=== PATIENT | male | born 1985 | race Two or more races ===

== ENCOUNTER 2018-10-04 07:11 | Outpatient (CLI) | payer OTHER ==
[~2018-10-04] VITALS: Ht 185.4 cm; Wt 129.7 kg
[2018-10-04] VITALS (23 sets, daily range): BP systolic 133–174; BP diastolic 75–107
[2018-10-04] MEDS ORDERED: GLIP5TAB10 PO (07:27)
[2018-10-04] MEDS ORDERED: LISI-334 PO (07:27)
[2018-10-04] MEDS ORDERED: LEVO25TA4 PO (07:27)
[2018-10-04] MEDS ORDERED: INDA1.25 PO (07:27)
[2018-10-04] MEDS ORDERED: ATOR10TA60 PO (07:27)
[2018-10-04 07:54] LABS: BASO # 0.1 x10^3/uL (0.0-0.2); BASO % 1 % (0-3); EOS # 0.4 x10^3/uL (0.0-0.7); EOS % 5 % (0-3); HEMATOCRIT 29.4 % (39.0-53.0); HEMOGLOBIN 10.3 g/dL (13.0-17.5); LYMPH # 2.8 x10^3/uL (1.0-4.8); LYMPH % 37 % (24-48); MEAN CORPUSCULAR HEMOGLOBIN 30 pg (25-35); MEAN CORPUSCULAR HGB CONC 35 g/dL (31-37); MEAN CORPUSCULAR VOLUME 86 fL (79-100); MONO # 0.5 x10^3/uL (0.0-1.1); MONO % 7 % (0-9); NEUT # 3.8 x10^3uL (1.8-7.7); NEUT % 50 % (31-73); PLATELET COUNT 170 x10^3/uL (140-400); RED BLOOD COUNT 3.43 x10^6/uL (4.30-5.70); RED CELL DISTRIBUTION WIDTH 13.9 % (11.5-14.5); WHITE BLOOD COUNT 7.6 x10^3/uL (4.0-11.0)
[2018-10-04] MEDS ORDERED: fentaNYL PF VIAL 100 MCG/2 ML VIAL ONE ×2 (08:03→08:26)
[2018-10-04] MEDS ORDERED: MIDAZOLAM HCL/PF 5 MG/5 ML VIAL. ONE (08:03)
[2018-10-04 08:04] LABS: PROTHROMBIN TIME PATIENT 12.7 SEC (11.7-14.0)
[2018-10-04] MEDS ORDERED: LIDOCAINE WITH 8.4% SOD BICARB 3 ML DISP.SYRIN. ONE (08:04)
[2018-10-04] MEDS ORDERED: GELATIN SPONGE SIZE 12-7MM SPONGE. ONE (08:05)
[2018-10-04] MEDS ORDERED: MIDAZOLAM HCL/PF 2 MG/2 ML VIAL. ONE (08:26)
[2018-10-04] MEDS ORDERED: MIDAZOLAM HCL/PF 2 MG/2 ML VIAL. IV ONE (08:45)
[2018-10-04] MEDS ORDERED: LIDOCAINE WITH 8.4% SOD BICARB 3 ML DISP.SYRIN. IJ ONE (08:45)
[2018-10-04] MEDS ORDERED: fentaNYL PF VIAL 100 MCG/2 ML VIAL IV ONE (08:45)
--- NOTE | 2018-10-04 13:01 | NUR ---
Discharge Note: JOSHUA BOSE Discharge instructions and discharge home medications reviewed with Parent and a copy given. All questions have been answered and understanding verbalized. Patient ate breakfast and lunch without any difficulties. The following instructions and handouts were given: Moderate sedation and kidney biopsy. Discontinued lines and drains: PIV left forearm, dressing clean dry intact. Patient discharged to home with mother via wheelchair to private vehichle.
--- NOTE | 2018-10-04 14:17 | RAD ---
CT-guided biopsy, left kidney 10/04/2018 Indication: Renal dysfunction Comparison study: None Discussion: The risks and benefits of the procedure were discussed patient. Informed consent was obtained. A timeout procedure was performed. The left posterior flank was prepped and draped using maximum sterile barrier technique. CT imaging linear density position of the left kidney. 1% lidocaine was administered for local anesthesia. Under intermittent CT guidance a 17-gauge needle was advanced to the posterior inferior left kidney. Core biopsy samples were obtained and placed in formalin and Meckel's solution. Gelfoam embolization of the biopsy tract was performed as a guiding needle was removed. CT imaging was repeated demonstrating expected post biopsy changes without significant hemorrhage or other immediate complication. The patient tolerated the procedure well remaining hemodynamically stable throughout. The procedure was performed under conscious sedation including continuous cardiopulmonary monitoring via dedicated sedation nurse. [id number] sedation time: 20 minutes Impression: CT-guided biopsy, left kidney. PQRS Compliance Statement: One or more of the following individualized dose reduction techniques were utilized for this examination: 1. Automated exposure control 2. Adjustment of the mA and/or kV according to patient size 3. Use of iterative reconstruction technique
--- NOTE | 2018-10-06 17:06 | PATHOLOGY ---
[facility] Accession Number: [id number] . 01 Material submitted: . renal pelvis - LEFT RENAL BIOPSY. Modifiers: left . 01 Clinical history: . Renal failure . 02 Diagnosis: Special studies report received from [facility], [address] [place] [address], [place] [address], on case [id number], labeled with their number [id number], dated 10/05/2018. . Amendment . Specimen submitted: By Kayode Pang MD For Kidney, biopsy . DIAGNOSIS: . Scant Limited Cortical Sample Showing: . Single Intact Glomerulus with Mild Mesangial Expansion. See Comment. . Comment: The tissue sampled for light microscopy shows predominantly medulla with scant corticomedullary junction tissue containing one sclerotic glomerulus. The tissue sampled for immunofluorescence shows a single sclerotic glomerulus. No intact glomeruli are identified for light microscopy of immunofluorescence examination. A single glomerulus examined for electron microscopy shows mild mesangial expansion. Similar glomerular findings can be seen in patients with diabetes and/or hypertension. The tissue is limited for evaluation because of scant sampling. Clinical correlation is required. . Clinical History: The patient is a 33-year-old male with kidney biopsy. Hemoglobin is 10.3. Creatinine is 1.9. Urinalysis shows proteinuria. No other history is available at this time. . Gross Description: Received from [facility] via [facility] are two specimen bottles; one bottle contains formalin and the other contains Leonel's fixative. The bottles are labeled with the patient's name (Sanya Martinez) and outside number ([id number]). . Received in formalin is one piece of arango tissue measuring 1.2 x 0.1 x 0.1 cm (fatty end, bisected). One piece is submitted for electron microscopy and the remainder of the tissue is submitted in its entirety for light microscopy. . Received in Leonel's fixative is one piece of arango bloody tissue measuring 0.7 x 0.1 x 0.1 cm. The specimen is submitted in its entirety for immunofluorescence microscopy. . Microscopic Description: . LIGHT MICROSCOPY: . Tissue submitted for light microscopic examination is represented by predominantly medulla with scant corticomedullary junction tissue containing one sclerotic glomerulus. No intact glomeruli are identified for evaluation. The sampled arteriole exhibits mild focal hyalinosis and an artery exhibits mild focal intimal fibrosis. No evidence of arteritis is identified. The scant cortex shows no significant scarring. Toluidine blue-stained sections for electron microscopy show scant cortex containing one glomerulus for evaluation. The sampled glomerulus shows mild increase in mesangial matrix. There is no evidence of endocapillary proliferation, necrosis, or crescent formation within the single glomerulus examined. The background tubules display mild tubular injury. There is mild tubulointerstitial scarring involving approximately 20% of the cortex sampled. Few interstitial foam cells are identified. No significant interstitial inflammation is identified. Blood vessels exhibit mild intimal fibrosis. No evidence of arteritis is identified. . Standard of care requirements for proper analysis of renal biopsies mandates serial sections, and PAS, Trujillo silver, trichrome and SMMT stains at multiple levels. PAS stains are used to evaluate various aspects of the glomerular, tubular, and vascular basement membranes. Trujillo silver stains are used to evaluate thickening, reduplication, "spiking" or "bubbling" of the glomerular basement membrane. Toluidine blue stained sections highlight glomerular basement membranes and demonstrates unusual types of deposits. It also reveals details of tubular epithelial cells and aids in the analysis of vascular lesions. Ibis trichrome stains are used to evaluate interstitial fibrosis and basement membrane deposits. The SMMT stain helps evaluate basement membrane changes, immune deposits and tubulointerstitial scarring. Controls are routinely run on all special stains and are verified for acceptability. A review of the technical quality of routine slides is made before results are reported. . IMMUNOFLUORESCENCE: The sections are stained for IgG, IgM, IgA, C3, C1q, albumin, fibrinogen, and kappa and lambda light chains. The tissue consists predominantly of renal medulla with scant corticomedullary junction tissue containing one sclerotic glomerulus. No intact glomeruli are present for evaluation. There is no significant staining within the medulla. [place] and lambda stain equally throughout the tubulointerstitium. . Positive and negative controls are run on all immunofluorescent stains and are verified for acceptability before results are reported. Internal antigens serve as positive controls. . ELECTRON MICROSCOPY: One block is prepared. Ultrastructural evaluation of a glomerulus reveals basement membranes that are variably thickened with ischemic changes. There is mesangial matrix expansion present. Though the mesangium contains ill-defined densities and hyaline, no definite immune-type electron-dense deposits are present. No immune-type electron-dense deposits are identified along the capillary garcia. There is moderate epithelial foot process effacement. The tubular basement membranes show mild thickening. . Special procedures including immunofluorescence and electron microscopy correlate with the light microscopy findings. . Note: Some of the tests reported here may have been developed and performance characteristics determined by [facility]. They have not been cleared or approved by the U.S. Food and Drug Administration (FDA). The FDA does not require this test to go through premarket FDA review. This test is used for clinical purposes. It should not be regarded as investigational or for research. [facility] is certified under the Clinical Laboratory Improvement Amendments of 1988 (CLIA) as qualified to perform high complexity clinical laboratory testing. . Physician/Physician's office called on 10/05/2018 at 3:41 PM [facility]. . AMENDMENT: . 10/06/2018: Amended to correct the name of the facility. . *I have reviewed the clinical history, the pertinent gross findings, all microscopic materials, discussed the case with the clinician when appropriate, and have rendered the final diagnosis. . . Final Diagnosis performed by Ochoa Hung M.D. Electronically signed 10/05/2018 5:16:34 PM . Amendment Amendment #1 performed by Ochoa Hung M.D. Electronically signed 10/06/2018 9:34:52 AM . A complete copy of the report is on file. . Professional and technical services performed by [facility] at [address] [place] [address], [address], [facility]. . ([facility] 10/06/2018) . [facility]/10/06/2018 . 02 Electronically signed: . Henrry Lin MD, Pathologist NPI- [id number] . 01 Gross description: . The specimen is received in formalin, labeled "Amena Jurado, left renal biopsy", consist of arango hemorrhagic tissue. Also received is a vial of Nimisha solution, labeled with patient name and "left renal biopsy" that consist of arango hemorrhagic tissue. The specimen is sent to, and the final report will be submitted from, the [facility]. ([facility]WS; 10/04/2018) [facility] . 02 Pathologist provided ICD-10: N19 . 02 CPT . 940458 Specimen Comment: A courtesy copy of this report has been sent to Specimen Comment: [phone], . Specimen Comment: Report sent to / DR JURADO Performed at: 01 [facility] [address] [facility] [address], [place] [id number] MD Charbel Garcia MD Phone: [phone] Performed at: 02 [facility] [address] [place], [place] [id number] MD Henrry Lin MD Phone: [phone]
== END 2018-10-04 13:00 | disposition home or self-care (01) ==
LOC: INTRAD 07:11
PROVIDERS: ATTEND Family Medicine
DX: N28.9 Disorder of kidney and ureter, unspecified (principal); Z79.01 Long term (current) use of anticoagulants
CPT/HCPCS: 36415; 50200; 85025; 85610; 99152; J2250; J3010

== ENCOUNTER 2018-12-04 08:33 | Outpatient (CLI) | payer OTHER ==
[2018-12-04] VITALS (12 sets, daily range): BP systolic 128–173; BP diastolic 84–98
[~2018-12-04] VITALS: Ht 185.4 cm; Wt 131.5 kg
[~2018-12-04 08:33] MED LIST: ATOR10TA60 PO; GLIP5TAB10 PO; INDA1.25 PO; LEVO25TA4 PO; LISI-334 PO
[2018-12-04] MEDS ORDERED: LISINOPRIL 20 MG TABLET PO ONE (09:00)
[2018-12-04 09:05] LABS: BASO # 0.1 x10^3/uL (0.0-0.2); BASO % 1 % (0-3); EOS # 0.4 x10^3/uL (0.0-0.7); EOS % 6 % (0-3); HEMATOCRIT 33.4 % (39.0-53.0); HEMOGLOBIN 11.4 g/dL (13.0-17.5); LYMPH # 2.5 x10^3/uL (1.0-4.8); LYMPH % 35 % (24-48); MEAN CORPUSCULAR HEMOGLOBIN 29 pg (25-35); MEAN CORPUSCULAR HGB CONC 34 g/dL (31-37); MEAN CORPUSCULAR VOLUME 86 fL (79-100); MONO # 0.4 x10^3/uL (0.0-1.1); MONO % 6 % (0-9); NEUT # 3.8 x10^3/uL (1.8-7.7); NEUT % 53 % (31-73); PLATELET COUNT 213 x10^3/uL (140-400); RED CELL DISTRIBUTION WIDTH 13.5 % (11.5-14.5); WHITE BLOOD COUNT 7.3 x10^3/uL (4.0-11.0)
[2018-12-04 09:11] LABS: CALCIUM 9.2 mg/dL (8.5-10.1); CREATININE 1.9 mg/dL (0.7-1.3); GFR 40.5; POTASSIUM 3.6 mmol/L (3.5-5.1)
[2018-12-04 09:14] LABS: PROTHROMBIN TIME PATIENT 11.4 SEC (11.7-14.0)
[2018-12-04] MEDS ORDERED: GELATIN SPONGE SIZE 12-7MM SPONGE. ONE (09:57)
[2018-12-04] MEDS ORDERED: LIDOCAINE WITH 8.4% SOD BICARB 3 ML DISP.SYRIN. ONE (09:57)
[2018-12-04] MEDS ORDERED: fentaNYL PF VIAL 100 MCG/2 ML VIAL ONE (10:25)
[2018-12-04] MEDS ORDERED: MIDAZOLAM HCL/PF 2 MG/2 ML VIAL. ONE (10:25)
[2018-12-04] MEDS ORDERED: fentaNYL PF VIAL 100 MCG/2 ML VIAL IV ONE (10:45)
[2018-12-04] MEDS ORDERED: MIDAZOLAM HCL/PF 2 MG/2 ML VIAL. IV ONE (10:45)
[2018-12-04] MEDS ORDERED: LIDOCAINE WITH 8.4% SOD BICARB 3 ML DISP.SYRIN. IJ ONE (10:45)
--- NOTE | 2018-12-04 11:08 | PDOC ---
MODERATE SEDATION ASSESSMENT RISKS/ALTERNATIVES Risks/Alternatives Risks and alternatives of this type of sedation and procedure discussed with: RISK/ALTERNATIVES: Patient H & P ON CHART H & P H & P on chart and reviewed for co-morbid conditions and appropriate labs. H&P ON CHART: Yes STATUS PREG STATUS ASSESSED: Yes MEDS/ALLERGIES REVIEWED Meds/Allergies Reviewed Medications and Allergies including time and route of recently administered narcotics and sedatives. MEDS/ALLERGIES REVIEWED: Yes ASA RATING ASA RATING: II AIRWAY ASSESSMENT Airway Assessment Airway patency, oral function limitations, presence of caps, crowns, dentures, partials, and ability to extend neck assessed. AIRWAY ASSESSMENT: Yes MALLAMPATI SCORE MALLAMPATI SCORE: II PRE-SEDATION ASSESSMENT PRE-SEDATION ASSESSMENT: Yes HOLLY TAYLOR MD Dec 04, 2018 11:08
--- NOTE | 2018-12-04 11:09 | PDOC ---
BRIEF OPERATIVE NOTE Pre-Op Diagnosis proteinuria Post-Op Diagnosis same Procedure Performed CT left renal biopsy Surgeon Florentin Anesthesia Type: Conscious Sedation Specimens Obtained 6 x 18g cores Findings CT left renal biopsy HOLLY TAYLOR MD Dec 04, 2018 11:09
--- NOTE | 2018-12-04 11:10 | PDOC1 ---
History and Physical Date of Procedure Date of Admission History of Present Illness Reason for Visit Proteinuria Past Medical History Past Medical History see nursing pre-op assessment Current Medications Current Medications Current Medications Lisinopril (Prinivil) 20 mg 1X ONCE PO Last administered on 12/04/18at 09:09; Start 12/04/18 at 09:00; Stop 12/04/18 at 09:01; Status DC Lidocaine/Sodium Bicarbonate (Buffered Lidocaine 1%) 3 ml STK-MED ONCE .ROUTE ; Start 12/04/18 at 09:57; Stop 12/04/18 at 09:57; Status DC Gelatin (Gelfoam Size 12-7mm) 1 each STK-MED ONCE .ROUTE ; Start 12/04/18 at 09:57; Stop 12/04/18 at 09:57; Status DC Midazolam HCl (Versed) 2 mg STK-MED ONCE .ROUTE ; Start 12/04/18 at 10:25; Stop 12/04/18 at 10:25; Status DC Fentanyl Citrate (Fentanyl 2ml Vial) 100 mcg STK-MED ONCE .ROUTE ; Start 12/04/18 at 10:25; Stop 12/04/18 at 10:25; Status DC Lidocaine/Sodium Bicarbonate (Buffered Lidocaine 1%) 10 ml 1X ONCE IJ Last administered on 12/04/18at 10:58; Start 12/04/18 at 10:45; Stop 12/04/18 at 10:48; Status DC Midazolam HCl (Versed) 1 mg 1X ONCE IV Last administered on 12/04/18at 10:58; Start 12/04/18 at 10:45; Stop 12/04/18 at 10:48; Status DC Fentanyl Citrate (Fentanyl 2ml Vial) 50 mcg 1X ONCE IV Last administered on 12/04/18at 10:58; Start 12/04/18 at 10:45; Stop 12/04/18 at 10:48; Status DC Active Scripts Active Reported Lisinopril 20 Mg Tablet 20 Mg PO DAILY Indapamide 1.25 Mg Tablet 1 Tab PO DAILY Glipizide 5 Mg Tablet 5 Mg PO DAILY Levothyroxine Sodium 25 Mcg Tablet 1 Tab PO DAILY Atorvastatin Calcium 10 Mg Tablet 10 Mg PO HS Allergies Allergies: Coded Allergies: No Known Drug Allergies (Unverified , 10/04/18) Physical Exam Vital Signs Vital Signs Date Time Temp Pulse Resp B/P (MAP) Pulse Ox O2 Delivery O2 Flow Rate FiO2 12/04/18 11:01 58 15 98 Nasal Cannula 3.0 12/04/18 09:09 173/97 12/04/18 08:59 98.0 98.0 Assessment Assessment Proteinuria Plan Plan CT renal biopsy HOLLY TAYLOR MD Dec 04, 2018 11:10
--- NOTE | 2018-12-04 13:34 | NUR ---
Discharge Note: ROLF BOSE Discharge instructions and discharge home medications reviewed with Patient and a copy given. All questions have been answered and understanding verbalized. The following instructions and handouts were given: moderate sedation and renal biopsy Discontinued lines and drains: Left FA PIV dcd. Patient discharged to Home or Self Care withfamily via private vehicle
--- NOTE | 2018-12-05 09:13 | RAD ---
Procedure: CT-guided left renal biopsy Clinical Indication: 33-year-old with proteinuria, prior nondiagnostic renal biopsy. Sedation: Conscious sedation was administered with a total intraprocedural sdtd-ld-sope time of 21 minutes. The patient was monitored by a qualified independent observer throughout the time of sedation. Please refer to the medical record for exact doses of medications utilized to achieve moderate sedation. Antibiotics: None Contrast: None Sterility: All elements of maximal sterile barrier technique including the use of a cap, mask, sterile gown, sterile gloves, large sterile sheet, appropriate hand hygiene, and 2% chlorhexidine for cutaneous antisepsis (or acceptable alternative antiseptic per current guidelines) were followed for this procedure. If ultrasound guidance was utilized, sterile ultrasound techniques were followed including use of a sterile probe cover. Consent: The procedure was explained in its entirety to the patient or the patients designated public service representative by a member of the treatment team, including a discussion of the risks, benefits and commonly accepted alternatives to the procedure, as well as the expected consequences of no therapy whatsoever. Discussion of the risks included, but was not limited to, those that are most frequent and those that are rare but possibly severe or life-threatening, as well as the possibility of unforeseen complications. Technique and Findings: Following informed consent, the patient was prepped and draped in usual sterile fashion. Primary CT scan of the area of interest was performed. 1% lidocaine was used to achieve local anesthesia. A small dermatotomy was made. Under periodic CT surveillance, a 17-gauge needle guide was advanced towards the inferior pole of the left kidney and 6 separate 18-gauge core biopsy specimens were obtained and divided between formalin and Domingo's solution. Gelfoam pledgets were applied as the needle guide was removed and hemostasis was achieved with manual compression. Complications: No immediate Impression: 1. CT-guided left renal biopsy as described. PQRS Compliance Statement: One or more of the following individualized dose reduction techniques were utilized for this examination: 1. Automated exposure control 2. Adjustment of the mA and/or kV according to patient size 3. Use of iterative reconstruction technique
--- NOTE | 2018-12-06 15:07 | PATHOLOGY ---
[facility] Accession Number: [id number] . 01 Material submitted: . kidney - LEFT RENAL BIOPSY. Modifiers: left . 01 Clinical history: . Chronic renal disease . 02 Diagnosis: Special studies report received from [facility], [address] [place] [address], [place] [address], on case [id number], labeled with their number [id number], dated 12/05/2018. . Specimen submitted: By Kayode Pang MD For Kidney, biopsy . DIAGNOSIS: . Arterionephrosclerosis. . Segmental Thinning of the Glomerular Basement Membranes by Electron Microscopy. . Comment: There is no evidence of an immune complex-mediated glomerulonephritis. . See table below for summary of chronicity findings: . Chronicity Summary Total Glomeruli- 83 Global Glomerusclerosis- 44 Segmental Sclerosis- Present Interstitial Fibrosis- Severe Tubular Atrophy- Severe Arterial Intimal Fibrosis- Severe Arteriolar Hyalinosis- Moderate . Clinical History: The patient is a 33-year-old male with a history of hypertension, hyperlipidemia, hypothyroidism, obesity, prediabetes, obstructive sleep apnea, and asthma who has been evaluated due to proteinuria. His serum creatinine is 1.9 (baseline creatinine 1.0 in May 2014). Additional lab shows an albumin of 3.2 and UPCR of 1.8 g/g. Urinalysis showed a moderate amount of blood and 3+ protein. SPEP is negative for monoclonal protein. A prior renal biopsy ([id number]) performed on October 05, 2018, was limited. . Gross Description: [facility] are two specimen bottles; one bottle contains formalin and the other contains Leonel's fixative. The bottles are labeled with the patient's name (Sanya Martinez) and date of (1985). Per the submitted paperwork, the outside number is [id number]. . Received in formalin are three pieces of arango tissue with fatty ends (two pieces are dissected and one piece is bisected) measuring 1.3 x 0.1 x 0.1 cm, 1.5 x 0.1 x 0.1 cm, and 1.2 x 0.1 x 0.1 cm. Two ends are submitted for electron microscopy and the remainder of the tissue is submitted in its entirety for light microscopy. . Received in Leonel's fixative are five pieces of arango tissue with fatty ends measuring two 0.5 x 0.1 x 0.1 cm, two at 0.6 x 0.1 x 0.1 cm, and one at 0.3 x 0.1 x 0. 1 cm. The specimen is submitted in its entirety for immunofluorescence microscopy. . Microscopic Description: LIGHT MICROSCOPY: . Three cores of renal tissue are submitted for light microscopy and consistent of 80% cortex and 20% medulla. A total of 42 glomeruli are seen, 25 of which are globally sclerotic. Three other glomeruli show segmental sclerotic lesions. The glomeruli show ischemic changes characterized by thickened and wrinkled capillary loops with Periglomerular fibrosis. Some of the glomeruli are slightly enlarged in size. There is no significant increase in mesangial matrix and mesangial hypercellularity. No endocapillary hypercellularity, fibrinoid necrosis, or crescents are identified. Silver stains did not show vacuolization, spikes, or double contours along the glomerular capillary loops. There is severe interstitial fibrosis and tubular atrophy involving about 60% of the renal cortex. Mild chronic inflammatory infiltrates are seen within the scarred interstitium. The non-sclerotic proximal tubules are reactive in appearance. Some of the tubules are lined by swollen epithelial cells with mild cytoplasmic vacuolization while others demonstrate epithelial attenuation with focal loss of the brush borders. No RBC casts are seen. Rare foci containing calcium phosphate deposits are present within the tubulointerstitial compartment. Arteries show moderate to severe intimal fibrosis. There is moderate arteriolosclerosis with hyaline changes. No vasculitis or thrombotic Microangiopathic changes are seen. Toluidine blue-stained sections contain four glomeruli, two of which are globally sclerotic. . Material from the patient's previous biopsy ([id number]) was reviewed concurrently. . Standard of care requirements for proper analysis of renal biopsies mandates serial sections, and PAS, Trujillo silver, trichrome and SMMT stains at multiple levels. PAS stains are used to evaluate various aspects of the glomerular, tubular, and vascular basement membranes. Trujillo silver stains are used to evaluate thickening, reduplication, "spiking" or "bubbling" of the glomerular basement membrane. Toluidine blue stained sections highlight glomerular basement membranes and demonstrates unusual types of deposits. It also reveals details of tubular epithelial cells and aids in the analysis of vascular lesions. Ibis trichrome stains are used to evaluate interstitial fibrosis and basement membrane deposits. The SMMT stain helps evaluate basement membrane changes, immune deposits and tubulointerstitial scarring. Controls are routinely run on all special stains and are verified for acceptability. A review of the technical quality of routine slides is made before results are reported. . IMMUNOFLUORESCENCE: Sections of kidney tissue are mainly represented by cortex. A total of 37 glomeruli are seen, 17 of which are globally sclerotic. Some of the glomeruli are large in size. The sections are stained for IgG, IgM, IgA, C3, C1q, albumin, fibrinogen, and kappa and lambda light chains. All the stains are essentially negative within the glomeruli. [employer] and lambda light chains stain equally throughout the tubulointerstitium and in tubular casts. . Positive and negative controls are run on all immunofluorescent stains and are verified for acceptability before results are reported. Internal antigens serve as positive controls. . ELECTRON MICROSCOPY: Two blocks are prepared. Ultrastructural analysis of a single glomerulus reveals glomerular basement membranes showing mild segmental thinning. However, the mean glomerular basement membrane thickness is 288nm (qzmqs=407-922 nm; reference range in our laboratory 264 to 472 nm). No endocapillary hypercellularity is seen. There is minimal increase in mesangial matrix. No subepithelial, subendothelial, or mesangial electron-dense deposits are present. There is moderate epithelial foot process effacement. Tubular basement membranes are devoid of deposits. . Special procedures including immunofluorescence and electron microscopy correlate with the light microscopy findings. . Note: Some of the tests reported here may have been developed and performance characteristics determined by [facility]. They have not been cleared or approved by the U.S. Food and Drug Administration (FDA). The FDA does not require this test to go through premarket FDA review. This test is used for clinical purposes. It should not be regarded as investigational or for research. [facility] is certified under the Clinical Laboratory Improvement Amendments of 1988 (CLIA) as qualified to perform high complexity clinical laboratory testing. . Physician/Physician's office called on 12/05/2018 at 4:33 PM Central. . *I have reviewed the clinical history, the pertinent gross findings, all microscopic materials, discussed the case with the clinician when appropriate, and have rendered the final diagnosis. . . Final Diagnosis performed by Ochoa Hung M.D. Electronically signed 12/05/2018 5:10:35 PM . . A complete copy of the report is on file. . Professional and technical services performed by [facility] at [id number] [place] [address], [facility] [address], [place], [facility]. . (JPM:ampreeti 12/06/2018) . AZJ/12/06/2018 . 02 Electronically signed: . Henrry Lin MD, Pathologist NPI- [id number] . 01 Gross description: . The specimen is received in formalin, labeled "Ambrosio Martinez, left renal BX", consist of three arango soft needle cores. Also received is a vial of Nimisha solution, labeled with patient name and "left renal biopsy" that consist of four fragments of needle cores. The specimen is sent to, and the final report will be submitted from, the [facility]. ([facility]; 12/04/2018) [facility] . 02 Pathologist provided ICD-10: N18.9 . 02 CPT . 798247 Specimen Comment: A courtesy copy of this report has been sent to Specimen Comment: [phone], , . Specimen Comment: Report sent to ,DR JURADO / DR BLACK Performed at: 01 [facility] [address] [facility] [address], [place], [place] [id number] MD Charbel Garcia MD Phone: [phone] Performed at: 02 [facility] [place] [address] [place], [place] [id number] MD Henrry Lin MD Phone: [phone]
== END 2018-12-04 13:47 | disposition home or self-care (01) ==
LOC: INTRAD 08:33
PROVIDERS: ATTEND Family Medicine
DX: I12.9 Hypertensive chronic kidney disease with stage 1 through stage 4 chronic kidney disease, or unspecified chronic kidney disease (principal); N18.9 Chronic kidney disease, unspecified; R80.9 Proteinuria, unspecified
CPT/HCPCS: 36415; 50200; 77012; 80048; 85025; 85610; 99152; J2250; J3010; 88300